=== PATIENT | male | born 1980 | race Caucasian/White ===

== ENCOUNTER 2017-05-24 13:58 | Inpatient (IN) | payer MEDICAID, OTHER, SELFPAY ==
[~2017-05-24] VITALS: Ht 172.7 cm; Wt 80.0 kg
[2017-05-24] MEDS ORDERED: TYLE325T5 PO (14:07)
[2017-05-24] MEDS ORDERED: BACTRIM 160MG/800MG DS TAB PO ONE (15:45)
[2017-05-24] MEDS ORDERED: ASPIRIN 81 MG CHEW TABLET PO ONE (15:45)
[2017-05-24 15:49] LABS: BASO % 0.3 % (0.0-1.0); EOS % 0.4 % (0.0-3.0); LARGE UNSTAINED CELL # 0.1 K/mm3 (0.0-0.4); LARGE UNSTAINED CELL % 0.8 % (0.0-4.0); LYMPH # 0.7 K/mm3 (1.5-4.5); LYMPH % 8.5 % (24.0-44.0); MEAN CORPUSCULAR HEMOGLOBIN 30.1 pg (27.0-33.0); MEAN CORPUSCULAR HGB CONC 35.5 g/dl (32.0-36.5); MEAN CORPUSCULAR VOLUME 84.7 fl (80.0-96.0); MONO # 0.5 K/mm3 (0.0-0.8); MONO % 6.4 % (0.0-5.0); NEUTROPHILS # 6.6 K/mm3 (1.8-7.7); NEUTROPHILS % 83.7 % (36.0-66.0); PLATELET COUNT, AUTOMATED 155 k/mm3 (150-450); RED CELL DISTRIBUTION WIDTH 12.6 % (11.5-14.5); WHITE BLOOD COUNT 7.9 K/mm3 (4.0-10.0)
[2017-05-24 15:58] LABS: ANION GAP 6 MEQ/L (8-16); BLOOD UREA NITROGEN 23 MG/DL (7-18); CALCIUM LEVEL 8.7 MG/DL (8.5-10.1); CARBON DIOXIDE LEVEL 29 MEQ/L (21-32); CHLORIDE LEVEL 98 MEQ/L (98-107); CREATININE FOR GFR 1.07 MG/DL (0.70-1.30); GLOMERULAR FILTRATION RATE > 60.0 (>60); GLUCOSE, FASTING 95 MG/DL (70-105); POTASSIUM SERUM 3.8 MEQ/L (3.5-5.1); SODIUM LEVEL 133 MEQ/L (136-145)
--- NOTE | 2017-05-24 16:12 | REP ---
Chest x-ray: Two views. History: Chest pain . Comparison study: No comparisons. . Findings: The lungs are well inflated and free of infiltrate. The pleural angles are sharp. The heart size is normal. Pulmonary vasculature is not increased. No significant bony abnormality is seen. EKG monitoring electrodes are seen. Impression: Negative chest x-ray. Signed by Dean Rodríguez MD 05/24/2017 04:04 P
[2017-05-24] MEDS ORDERED: NS 1,000 ML IV ONE (16:45)
[2017-05-24] MEDS ORDERED: ACETAMINOPHEN TAB 650MG DOSE (2X325MG) PO ONE ×2 (16:45→22:00)
[2017-05-24] MEDS ORDERED: CLINDAMYCIN 600 MG in APPROPRIATE DILUENT 1 EA IV ONE (17:45)
[2017-05-24] MEDS ORDERED: IBUPROFEN 600 MG TAB PO ONE (17:45)
[2017-05-24] MEDS ORDERED: VANCOMYCIN HCL 1,000 MG, VIAL MATE ADAPTER 1 EACH in D5W 250 ML IV ONE (17:45)
[2017-05-24] MEDS ORDERED: LIDOCAINE 1% MDV 20ML VIAL SC ONE (21:30)
[2017-05-24] MEDS ORDERED: BACT800T5 PO (21:54)
[2017-05-24 23:14] LABS: ERYTHROCYTE SEDIMENTATION RATE 3 mm/hr (0-15)
[2017-05-24] MEDS ORDERED: ADACEL/BOOSTRIX VACCINE (DIPHTH/PERTUSS/ACELL/TETANUS)0.5ML SYR (90715) IM ONE (23:15)
[2017-05-24] MEDS ORDERED: MORPHINE 2 MG/ML 1ML SYRINGE IV PRN (23:30)
[2017-05-24] MEDS ORDERED: PERCOCET 5MG/325MG TAB PO PRN (23:30)
[2017-05-24 23:45] VITALS: BP 146/84
[2017-05-24] MEDS: ONDANSETRON 4MG/2ML VIAL (J2405) IV PRN (23:56)
[2017-05-25] MEDS: CEFTAROLINE FOSAMIL 600 MG in D5W MINI-BAG PLUS 50 ML IV SCH ×2 (01:03→11:47)
[2017-05-25] MEDS: LR 1,000 ML IV SCH ×2 (01:03→11:47)
--- NOTE | 2017-05-25 01:20 | REPUSA ---
Clinical statement: Pain. Findings: Real-time ultrasound imaging of the left forearm was obtained. Mild edema is seen in the s ubcutaneous tissues. No abscess or fluid collection is identified. Impression: Mild edema without evidence of abscess.
[2017-05-25] MEDS: ACETAMINOPHEN TAB 650MG DOSE (2X325MG) PO PRN ×4 (06:21→21:03)
[2017-05-25 06:25] LABS: MEAN CORPUSCULAR HEMOGLOBIN 29.5 pg (27.0-33.0); MEAN CORPUSCULAR HGB CONC 34.6 g/dl (32.0-36.5); MEAN CORPUSCULAR VOLUME 85.3 fl (80.0-96.0); RED CELL DISTRIBUTION WIDTH 12.4 % (11.5-14.5); WHITE BLOOD COUNT 8.7 K/mm3 (4.0-10.0)
[2017-05-25 06:32] LABS: ANION GAP 7 MEQ/L (8-16); BLOOD UREA NITROGEN 14 MG/DL (7-18); CARBON DIOXIDE LEVEL 24 MEQ/L (21-32); CHLORIDE LEVEL 104 MEQ/L (98-107); CREATININE FOR GFR 1.17 MG/DL (0.70-1.30); GLOMERULAR FILTRATION RATE > 60.0 (>60); GLUCOSE, FASTING 117 MG/DL (70-105); MAGNESIUM LEVEL 1.8 MG/DL (1.8-2.4); SODIUM LEVEL 135 MEQ/L (136-145)
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
--- NOTE | 2017-05-25 07:34 | ECGEPIP ---
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
--- NOTE | 2017-05-25 07:38 | ECGEPIP ---
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
--- NOTE | 2017-05-25 07:52 | REP ---
Left forearm two views : There is no fracture or dislocation. Mineralization and joint spaces are normal. There are no calcifications or foreign bodies. Impression: Negative left forearm . Signed by Honorio Faria MD 05/25/2017 07:44 A
[2017-05-25] MEDS: ENOXAPARIN 40 MG/0.4 ML SYRINGE (J1650) SC SCH (08:30)
[2017-05-25] MEDS: SENOKOT S TAB PO SCH ×2 (08:30→19:46)
[2017-05-25] MEDS: KETOROLAC 30 MG/ML VIAL (J1885) IV PRN ×2 (12:20→18:23)
[2017-05-25 14:00] VITALS: BP 118/67
[2017-05-25] MEDS: ONDANSETRON 4MG/2ML VIAL (J2405) IV PRN (17:28)
[2017-05-25] MEDS: VANCOMYCIN HCL 1,000 MG, VIAL MATE ADAPTER 1 EACH in D5W 250 ML IV SCH (17:35)
--- NOTE | 2017-05-25 19:39 | PHACANCOPD ---
PHARMACY VANCOMYCIN DOSING Pt Demographics Demographics Patient Age:36 , Weight:85.900 , Gender: male Adjusted Body Weight Date: 05/25/17, Adjusted Body Weight: [NA] Kg Events Past 24 Hours Events Past 24 Hours: YES: Fever, Elevation in WBC, NO: Dialysis, Diuretic Therapy, Change in CrCl, Pending Diagnostics, Pending Procedures, Other Vancomycin Vancomycin indication: bacteremia/cellulitis/abscess Vancomycin Target Ranges: 10-20 mcg/ml Vancomycin Load Y/N: No Load Dose Date Time Vancomycin Load Dose: Date: Time: Vancomycin Dose Date: 05/25/17. Current Vancomycin Dose: [1g IV q8h @18] Intermittent Dosing?: No Labs Labs Item Value Date Time C-Reactive Protein, Quantitative 2.54 MG/DL H 05/24/17 1447 C-Reactive Protein, Quantitative 8.88 MG/DL H 05/25/17 0552 Creatinine 1.07 MG/DL 05/24/17 1447 Creatinine 1.17 MG/DL 05/25/17 0552 White Blood Count 7.9 K/mm3 05/24/17 1447 White Blood Count 8.7 K/mm3 05/25/17 0552 Vital Signs Label Value Date Time Patient Temperature 100.6 degrees F 05/25/17 0830 Temperature Source Temporal 05/25/17 0830 Patient Temperature 99.4 degrees F 05/25/17 1029 Temperature Source Temporal 05/25/17 1029 Patient Temperature 100.5 degrees F 05/25/17 1220 Temperature Source Temporal 05/25/17 1220 Patient Temperature 98.6 degrees F 05/25/17 1400 Temperature Source Temporal 05/25/17 1400 Patient Temperature 99.6 degrees F 05/25/17 1620 Temperature Source Temporal 05/25/17 1620 Micro Microbiology 05/25/17 Blood Culture, Received Pending 05/25/17 Blood Culture, Received Pending 05/24/17 Blood Culture - Preliminary, Resulted 05/24/17 Blood Culture - Preliminary, Resulted 05/24/17 Urine Culture - Final, Complete 05/25/17 MRSA Screen, Received Pending 05/24/17 Gram Stain - Final, Resulted 05/24/17 Wound Culture, Resulted Pending Creatinine Clearance Date:05/25/17. Creatinine Clearance: [86 ml/min]. Assessment and Plan Maintaining Current Dose?: Yes Reason for dose change: No Dose Change Pharmacist Note Pharmacist Note Date: 05/25/17. Pharmacist note: pt was admitted yesterday for left arm cellulitis/arm & shoulder pain s/p I&D in the ER. Blood cultures (drawn @14:47, 17:58) are preliminary positive for G+ cocci in clusters. MRSA screen is pending. Pt has a limited medical Hx at our facility. Upon arrival yesterday, pt received Bactrim po @15:58, Vancomycin 1g IV @18:18 and Clindamycin @19:40. He was then started on Ceftaroline 600mg IV q12h x2 doses before being switched to Vancomycin and Aztreonam today. I have started him on Vancomycin 1g IV q8h. I will continue to monitor cultures/renal function and follow up with a trough as necessary. Gasper Weir Pharm.D. May 25, 2017 19:39
[2017-05-25] MEDS: AZTREONAM 1 GM in D5W MINI-BAG PLUS 50 ML IV SCH (19:46)
[2017-05-25 22:00] VITALS: BP 120/60
[2017-05-26] MEDS: VANCOMYCIN HCL 1,000 MG, VIAL MATE ADAPTER 1 EACH in D5W 250 ML IV SCH ×4 (01:22→22:00)
[2017-05-26] MEDS: KETOROLAC 30 MG/ML VIAL (J1885) IV PRN ×2 (02:45→17:30)
[2017-05-26] MEDS: AZTREONAM 1 GM in D5W MINI-BAG PLUS 50 ML IV SCH ×3 (04:00→20:31)
[2017-05-26 06:00] VITALS: BP 111/57
[2017-05-26 06:53] LABS: MEAN CORPUSCULAR HGB CONC 34.2 g/dl (32.0-36.5); MEAN CORPUSCULAR VOLUME 84.7 fl (80.0-96.0); RED CELL DISTRIBUTION WIDTH 12.8 % (11.5-14.5); WHITE BLOOD COUNT 4.9 K/mm3 (4.0-10.0)
[2017-05-26 07:10] LABS: ANION GAP 7 MEQ/L (8-16); BLOOD UREA NITROGEN 11 MG/DL (7-18); CALCIUM LEVEL 8.1 MG/DL (8.5-10.1); CARBON DIOXIDE LEVEL 25 MEQ/L (21-32); CHLORIDE LEVEL 106 MEQ/L (98-107); CREATININE FOR GFR 1.02 MG/DL (0.70-1.30); GLOMERULAR FILTRATION RATE > 60.0 (>60); GLUCOSE, FASTING 113 MG/DL (70-105); POTASSIUM SERUM 3.7 MEQ/L (3.5-5.1); SODIUM LEVEL 138 MEQ/L (136-145)
[2017-05-26] MEDS: ENOXAPARIN 40 MG/0.4 ML SYRINGE (J1650) SC SCH (09:21)
[2017-05-26] MEDS: ACETAMINOPHEN TAB 650MG DOSE (2X325MG) PO PRN ×2 (09:21→18:20)
[2017-05-26] MEDS: SENOKOT S TAB PO SCH ×2 (09:21→20:31)
[2017-05-26 14:00] VITALS: BP 116/70
[2017-05-26 22:00] VITALS: BP 118/70
--- NOTE | 2017-05-26 22:26 | IPN ---
DATE: 05/25/2017 Mr. Benjamin was feeling better this morning. Unfortunately, during the course of the afternoon, he developed rigors. No fever, but does have some increasing swelling of the left extremity. T-max was 104.3 yesterday. T-current is 99.5. Today, he has been running low grade fevers. Pulse 80. Respiratory rate 16. Blood pressure 118/67. Input and output notable for a positive fluid balance of 1320, weight 85.9 kg. Body mass index (BMI) of 28.8. He is awake, appropriately interactively. Pleasant conversant. Somewhat stoic. Mucous membranes moist. Neck supple. Breathing is symmetric and rested. Heart is in a regular rhythm and not tachycardiac. Area of crusting of his left forearm shows no fluctuance. He says it is decreased tenderness when compared to yesterday. There is no axillary adenopathy on the left side. White cell count 8.7, hemoglobin 15.3 and platelets of 139. BUN 14, creatine 1.17. C-reactive protein (CRP) has increased to 8.8. Initial blood cultures have returned. ASSESSMENT: 36-year-old with left upper extremity abscess, bacteremia with gram-positive cocci in clusters. PLAN: 1. Infectious disease. The patient was started on Teflaro, which would seem like a reasonable choice. Continues to be rigor. So, I have elected to change antibiotics to Azactam and vancomycin pending culture results, repeated blood cultures. At baseline is somewhat unusual presentation. Will get a 2-D echocardiogram as well. 2. The patient had chest pain at the time of presentation, which has resolved. 3. The patient has appropriate deep vein thrombosis (DVT) prophylaxis.
[2017-05-27] MEDS: AZTREONAM 1 GM in D5W MINI-BAG PLUS 50 ML IV SCH (03:46)
[2017-05-27] MEDS: KETOROLAC 30 MG/ML VIAL (J1885) IV PRN (03:47)
[2017-05-27 06:00] VITALS: BP 117/64
[2017-05-27] MEDS: VANCOMYCIN HCL 1,000 MG, VIAL MATE ADAPTER 1 EACH in D5W 250 ML IV SCH ×3 (06:01→21:27)
[2017-05-27 06:48] LABS: MEAN CORPUSCULAR HEMOGLOBIN 29.2 pg (27.0-33.0); MEAN CORPUSCULAR HGB CONC 34.4 g/dl (32.0-36.5); MEAN CORPUSCULAR VOLUME 84.9 fl (80.0-96.0); RED CELL DISTRIBUTION WIDTH 12.6 % (11.5-14.5); WHITE BLOOD COUNT 4.5 K/mm3 (4.0-10.0)
[2017-05-27 07:12] LABS: ANION GAP 8 MEQ/L (8-16); BLOOD UREA NITROGEN 8 MG/DL (7-18); CALCIUM LEVEL 8.2 MG/DL (8.5-10.1); CARBON DIOXIDE LEVEL 25 MEQ/L (21-32); CHLORIDE LEVEL 104 MEQ/L (98-107); CREATININE FOR GFR 0.91 MG/DL (0.70-1.30); GLOMERULAR FILTRATION RATE > 60.0 (>60); GLUCOSE, FASTING 113 MG/DL (70-105); MAGNESIUM LEVEL 2.2 MG/DL (1.8-2.4); POTASSIUM SERUM 3.7 MEQ/L (3.5-5.1); SODIUM LEVEL 137 MEQ/L (136-145)
[2017-05-27] MEDS ORDERED: SIMETHICONE 80 MG CHEW TAB PO PRN (08:00)
--- NOTE | 2017-05-27 09:13 | IPN ---
DATE: 05/26/2017 Mr. Benjamin is feeling better than he did last evening. He still has the feeling as though he might have chills developing that is not as intense and he has not had fevers. Temperature currently is 97.8. Last fever was 100.5 at 12:20 p.m. yesterday. Pulse 87. Respiratory rate 18. Blood pressure 111/57. 97% on room air. Input and output notable for a positive fluid balance of 4200. Weight is 84.6 kg with a body mass index of 28.2. He is awake, appropriately interactively, pleasantly conversant. Excellent historian. Mucous membranes moist. Neck supple, thick. Breathing is symmetric and rested. Heart is in a regular rate and rhythm. No murmur on exam. Left upper extremity has an area of crusting with a more notable blister than last evening distally. Erythema has faded somewhat and does not have clear borders. White cell count 4.9. C-reactive protein 14.3. Creatinine of 1.02. Repeat blood cultures are pending. Previous blood cultures have grown Staphylococcus aureus and wound culture grew MRSA. Assessment is as follows: This is a 36-year-old with MRSA, left forearm abscess and resulting bacteremia. Plan is as follows: 1. Infectious disease. The patient is on Zosyn and vancomycin at this point. We will await blood culture results specifically to adjust antibiotics. He does seem to have improvement. Repeat blood cultures are pending. 2D echocardiogram is pending. EKG is pending. 2. The patient has resolved chest pain. 3. The patient has appropriate deep vein thrombosis (DVT) prophylaxis. 4. There is no evidence of increasing abscess on his left forearm or reaccumulation. This will need to be monitored clinically.
[2017-05-27] MEDS: ENOXAPARIN 40 MG/0.4 ML SYRINGE (J1650) SC SCH (09:14)
--- NOTE | 2017-05-27 10:38 | ECHO ---
DATE OF PROCEDURE: 05/26/2017 DATE OF : 1980 AGE: 36 REFERRING PROVIDER: Dr. Tera rGider. PATIENT LOCATION: REASON FOR ECHOCARDIOGRAM: Fever. 2D MEASUREMENTS: IVS: 1.2 cm LV: 5.1 cm LVPW: 1.0 cm LA: 3.9 cm Aorta: 3.3 cm RV: 2.7 cm DOPPLER MEASUREMENTS: Mitral E: 0.83 Mitral A: 0.39 Ratio 2.17 Maximum tricuspid valve velocity: 2.1 m/s 2D COMMENTS: 1. Normal left ventricular size, wall thickness and normal global left ventricular systolic function. The estimated global left ventricular systolic ejection fraction is 60% to 65%. 2. Normal left atrium. Normal right atrium and right ventricle. 3. The atrial septum appeared to be normal without evidence of defect or shunt. 4. Normal aortic root. 5. No pericardial effusion seen. 6. The aortic valve, mitral valve, tricuspid valve, and pulmonic valve appeared to be normal. The proximal pulmonary artery branches were not well visualized. 7. The inferior vena cava was normal in size, central venous pressure is most likely normal. DOPPLER: Only trace mitral regurgitation and trace tricuspid regurgitation detected. The calculated pulmonary artery systolic pressure was normal, less than 30 mmHg. Assessment of the left ventricular diastolic function also was normal. IMPRESSION: 1. Normal global left ventricular systolic and diastolic function. 2. Trace mitral regurgitation. 3. Trace tricuspid regurgitation with a normal calculated pulmonary artery systolic pressure. 4. No vegetations noted in this transthoracic echocardiogram. To consider a transesophageal echocardiogram if there is any subclinical correlation. MTDD
[2017-05-27 14:00] VITALS: BP 116/66
--- NOTE | 2017-05-27 14:10 | PHACANCOPD ---
PHARMACY VANCOMYCIN DOSING Pt Demographics Demographics Patient Age:36 , Weight:85.870 , Gender: male Adjusted Body Weight Date: 05/25/17, Adjusted Body Weight: [NA] Kg Events Past 24 Hours Events Past 24 Hours: YES: Fever, NO: Dialysis, Diuretic Therapy, Change in CrCl, Elevation in WBC, Pending Diagnostics, Pending Procedures, Other Vancomycin Vancomycin indication: bacteremia/cellulitis/abscess Vancomycin Target Ranges: 10-20 mcg/ml Vancomycin Load Y/N: No Load Dose Date Time Vancomycin Load Dose: Date: Time: Vancomycin Dose Date: 05/26/17. Current Vancomycin Dose: [1g IV Q8H @22] Date: 05/25/17. Current Vancomycin Dose: [1g IV q8h @18] Intermittent Dosing?: No Labs Labs Item Value Date Time White Blood Count 8.7 K/mm3 05/25/17 0552 White Blood Count 4.9 K/mm3 05/26/17 0617 White Blood Count 4.5 K/mm3 05/27/17 0607 Vancomycin Level Trough 9.2 UG/ML L 05/26/17 1714 Creatinine 1.17 MG/DL 05/25/17 0552 Creatinine 1.02 MG/DL 05/26/17 0617 Creatinine 0.91 MG/DL 05/27/17 0607 C-Reactive Protein, Quantitative 11.80 MG/DL H 05/27/17 0607 C-Reactive Protein, Quantitative 14.30 MG/DL H 05/26/17 0617 C-Reactive Protein, Quantitative 8.88 MG/DL H 05/25/17 0552 Vancomycin Level Trough 9.5 UG/ML L 05/27/17 1308 Vital Signs Label Value Date Time Patient Temperature 100.7 degrees F 05/26/17 1733 Temperature Source Temporal 05/26/17 1733 Patient Temperature 97.9 degrees F 05/26/17 2200 Temperature Source Core 05/26/17 2200 Patient Temperature 97.4 degrees F 05/27/17 0600 Temperature Source Core 05/27/17 0600 Micro Microbiology 05/25/17 Blood Culture - Preliminary, Resulted No growth after 24 hours . All specim... 05/25/17 Blood Culture - Preliminary, Resulted No growth after 24 hours . All specim... 05/24/17 Blood Culture - Final, Complete Staph.aureus Methicillin Resis 05/24/17 Blood Culture - Final, Complete Staph.aureus Methicillin Resis 05/24/17 Urine Culture - Final, Complete 05/25/17 MRSA Screen - Final, Complete Staph.aureus Methicillin Resis 05/24/17 Gram Stain - Final, Complete 05/24/17 Wound Culture - Final, Complete Staph.aureus Methicillin Resis Creatinine Clearance Date:05/27/17. Creatinine Clearance: [>100ml/min]. Date:05/25/17. Creatinine Clearance: [86 ml/min]. Assessment and Plan Maintaining Current Dose?: Yes Reason for dose change: Other (additional 1g dose this afternoon) Pharmacist Note Pharmacist Note Date: 05/27/17. Pharmacist note: vancomycin trough drawn yesterday was low, therefore I had rescheduled his dosing to 4 hours earlier (4hr load) however the repeat trough this afternoon was about the same as yesterday. I checked with nursing to see if there were any issues with any of the doses but none were reported. I ordered an additional 1g dose this afternoon and we will continue the 1g q8h dosing. Creatinine clearance has improved since admission. Wound and blood cultures are positive for MRSA (vanco lorraine = 1, otherwise taylor- sensitive). Repeat blood cultures have been negative thus far. We will continue to monitor. Date: 05/25/17. Pharmacist note: pt was admitted yesterday for left arm cellulitis/arm & shoulder pain s/p I&D in the ER. Blood cultures (drawn @14:47, 17:58) are preliminary positive for G+ cocci in clusters. MRSA screen is pending. Pt has a limited medical Hx at our facility. Upon arrival yesterday, pt received Bactrim po @15:58, Vancomycin 1g IV @18:18 and Clindamycin @19:40. He was then started on Ceftaroline 600mg IV q12h x2 doses before being switched to Vancomycin and Aztreonam today. I have started him on Vancomycin 1g IV q8h. I will continue to monitor cultures/renal function and follow up with a trough as necessary. Gasper Weir Pharm.D. May 27, 2017 14:10
[2017-05-27] MEDS ORDERED: VANCOMYCIN HCL 1,000 MG, VIAL MATE ADAPTER 1 EACH in D5W 250 ML IV ONE (15:00)
[2017-05-27 21:00] VITALS: BP 113/61
[2017-05-28] VITALS: BP 149/89
[2017-05-28] MEDS: VANCOMYCIN HCL 1,000 MG, VIAL MATE ADAPTER 1 EACH in D5W 250 ML IV SCH ×3 (05:32→21:47)
[2017-05-28 07:01] LABS: MEAN CORPUSCULAR HEMOGLOBIN 29.5 pg (27.0-33.0); MEAN CORPUSCULAR HGB CONC 34.8 g/dl (32.0-36.5); MEAN CORPUSCULAR VOLUME 84.7 fl (80.0-96.0); RED CELL DISTRIBUTION WIDTH 12.9 % (11.5-14.5); WHITE BLOOD COUNT 5.5 K/mm3 (4.0-10.0)
[2017-05-28 07:25] LABS: ANION GAP 6 MEQ/L (8-16); BLOOD UREA NITROGEN 7 MG/DL (7-18); CALCIUM LEVEL 8.5 MG/DL (8.5-10.1); CARBON DIOXIDE LEVEL 29 MEQ/L (21-32); CHLORIDE LEVEL 104 MEQ/L (98-107); CREATININE FOR GFR 0.96 MG/DL (0.70-1.30); GLOMERULAR FILTRATION RATE > 60.0 (>60); GLUCOSE, FASTING 125 MG/DL (70-105); MAGNESIUM LEVEL 2.3 MG/DL (1.8-2.4); POTASSIUM SERUM 3.6 MEQ/L (3.5-5.1); SODIUM LEVEL 139 MEQ/L (136-145)
[2017-05-28 08:00] VITALS: BP 123/74
[2017-05-28] MEDS: ENOXAPARIN 40 MG/0.4 ML SYRINGE (J1650) SC SCH (08:40)
--- NOTE | 2017-05-28 11:39 | IPN ---
DATE: 05/27/2017 Mr. Benjamin is feeling better this morning. He has had no fevers. Still had episodes as though he was shaking or going to start shaking. There is no drainage from his left forearm wound. PHYSICAL EXAMINATION: VITAL SIGNS: Temperature 97.4, pulse 77, respiratory rate 18, blood pressure 117/64, 96% on room air. Input and output notable for a positive fluid balance of 3040, two bowel movements noted yesterday. Weight is 85.8 kg. He is awake, appropriately interactive. Mucous membranes are moist. Neck is supple. Breathing is symmetrical and rested. I:E ratio is 1:3. Speaking in complete sentences. No accessory muscle use. Heart has regular rate and rhythm. Abdomen is soft, doughy, nontender. Left forearm has an area of increasingly consolidating erythema around this area of abscess drainage. There is surrounding induration but no fluctuance. It is much less tender than previously. White cell count 4.5, hemoglobin 13.9, platelets of 122. BUN 8, creatinine 0.9, C-reactive protein is 11.8. ASSESSMENT: This is a 36-year-old with methicillin resistant Staphylococcus aureus (MRSA) left forearm abscess and resulting bacteremia. 1. Infectious disease. The patient is on Azactam and vancomycin. Azactam is no longer necessary. We will continue with vancomycin and repeat laboratories. Follow blood culture results. The patient may require ANNETTE. Depending on clinical course, we will discuss the case in general with infectious disease doctor when she becomes available tomorrow. 2. The patient had chest pain at the time of his presentation. 3. The patient has hyponatremia, which has resolved. 4. The patient has developing anemia and thrombocytopenia, which can be monitored clinically.
[2017-05-28 16:00] VITALS: BP 116/80
[2017-05-28 20:00] VITALS: BP 122/71
--- NOTE | 2017-05-28 21:56 | IPN ---
DATE: 05/28/2017 The patient is feeling well today. He has no complaints of pain, chest pain, shortness of breath. No arm pain or drainage. Tolerating a diet. Maximum temperature (Tmax) overnight 100.5, current temperature (T-current) 100.3, pulse 63, respiratory rate 18, blood pressure 123/60. He is awake, appropriately interactive, pleasantly conversant, in no acute distress. Mucous membranes moist. Neck is supple. Breathing is symmetrical and rested. Heart is in a regular rate and rhythm. Abdomen soft, doughy, nontender. Left upper extremity shows evidence of consolidating area of infection with an area of induration, redness, warmth, without tenderness at this point, with two blisters. WBC is 5.5, hemoglobin 14, and platelets of 145. BUN is 7, creatinine 0.96. My assessment is as follows: This is a 36-year-old with methicillin-resistant Staphylococcus aureus (MRSA) left forearm abscess and resulting bacteremia. Plan is as follows: 1. Infectious disease. Patient is currently on vancomycin and has been seen in consultation by Dr. Lama and plan for antibiotic therapy per her. 2. The patient had chest pain at the time of his presentation which resolved. 3. The patient has hyponatremia, which has resolved. 4. The patient has borderline anemia and thrombocytopenia which can be followed clinically.
[2017-05-29] VITALS: BP 134/88
[2017-05-29 04:00] VITALS: BP 121/59
[2017-05-29] MEDS ORDERED: DAPTOmycin 500 MG in NS 50 ML IV SCH (07:00)
[2017-05-29 07:50] LABS: MEAN CORPUSCULAR HEMOGLOBIN 29.5 pg (27.0-33.0); MEAN CORPUSCULAR HGB CONC 34.4 g/dl (32.0-36.5); MEAN CORPUSCULAR VOLUME 85.8 fl (80.0-96.0); RED CELL DISTRIBUTION WIDTH 12.8 % (11.5-14.5); WHITE BLOOD COUNT 5.7 K/mm3 (4.0-10.0)
[2017-05-29 08:00] VITALS: BP 130/84
[2017-05-29] MEDS: ENOXAPARIN 40 MG/0.4 ML SYRINGE (J1650) SC SCH (08:33)
[2017-05-29 08:39] LABS: ANION GAP 6 MEQ/L (8-16); BLOOD UREA NITROGEN 15 MG/DL (7-18); CALCIUM LEVEL 8.7 MG/DL (8.5-10.1); CARBON DIOXIDE LEVEL 28 MEQ/L (21-32); CHLORIDE LEVEL 102 MEQ/L (98-107); CREATININE FOR GFR 0.92 MG/DL (0.70-1.30); GLOMERULAR FILTRATION RATE > 60.0 (>60); GLUCOSE, FASTING 94 MG/DL (70-105); MAGNESIUM LEVEL 2.3 MG/DL (1.8-2.4); POTASSIUM SERUM 3.9 MEQ/L (3.5-5.1); SODIUM LEVEL 136 MEQ/L (136-145)
[2017-05-29 12:00] VITALS: BP 137/79
[2017-05-29] MEDS ORDERED: MUPI2OI EXT (14:02)
--- NOTE | 2017-05-29 15:49 | DS.PDOC ---
Discharge Summary General Date of Admission May 27, 2017 at 08:01 Date of Discharge 05/29/17 Specialist/Consultants Involve: Vanesa Lama MD Discharge Summary PROCEDURES PERFORMED DURING STAY: Incision and drainage of left forearm abscess. DISCHARGE DIAGNOSES: 1. MRSA Bacteremia. 2. Left arm cellulitis secondary to trauma. COMPLICATIONS/CHIEF COMPLAINT: Cellulitis Of Arm, Fever. HOSPITAL COURSE: A 36-year old male presented for worsening left sided chest and shoulder pain. Also noted worsening redness and swelling of left forearm with some purulent drainage at a small site of trauma. 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 Patient noted fevers at home. Patient underwent I&D in ER, with fever of 103. Patient admitted for intravenous antibiotics and infectious disease consultation. Patient responded well to treatment, cultures obtained, and discharged home in stable condition with antibiotics infusion as indicated and outpatient follow up. DISCHARGE MEDICATIONS: Please see below. ALLERGIES: Please see below. PHYSICAL EXAMINATION ON DISCHARGE: VITAL SIGNS: Please see below. GENERAL: NAD, sitting comfortably at edge of bed HEENT: NC/AT, EOMI NECK: supple CARDIOVASCULAR EXAMINATION: +S1S2, RRR RESPIRATORY EXAMINATION: CTA B/L ABDOMINAL EXAMINATION: soft, NT, +BS EXTREMITIES: left forearm cellulitic area, 2"x3" LABORATORY DATA: Please see below. Echocardiogram: Normal LV systolic and diastolic function. Trace regurgitation. ACTIVITY: [As tolerated]. DIET: Regular diet DISPOSITION: 01 Home, Self-Care. DISCHARGE INSTRUCTIONS: 1. Medications (IV infusion) as directed. ITEMS TO FOLLOWUP ON ON OUTPATIENT: 1. PCP in 3-5 [address] 2[address] Infectious disease Dr. Lama as directed or in 3-5 days DISCHARGE CONDITION: [Stable]. TIME SPENT ON DISCHARGE: Greater than 30 minutes. Vital Signs/I&Os Vital Signs Date Time Temp Pulse Resp B/P (MAP) Pulse Ox O2 Delivery O2 Flow Rate FiO2 05/29/17 12:00 97.9 66 18 137/79 (98) 97 Room Air I&O- Last 24 Hours up to 6 AM 05/29/17 05:59 Intake Total 2970 ml Output Total 1050 ml Balance 1920 ml Laboratory Data Labs 24H Laboratory Tests 2 05/29/17 07:18: Anion Gap 6L, Glomerular Filtration Rate > 60.0, Blood Urea Nitrogen 15#, Creatinine 0.92, Sodium Level 136, Potassium Level 3.9, Chloride Level 102, Carbon Dioxide Level 28, Calcium Level 8.7, Magnesium Level 2.3, Total Creatine Kinase 36L, C-Reactive Protein, Quantitative 4.41H CBC/BMP Laboratory Tests 05/29/17 07:18 Red Blood Count 4.89, Mean Corpuscular Volume 85.8, Mean Corpuscular Hemoglobin 29.5, Mean Corpuscular Hemoglobin Concent 34.4, Red Cell Distribution Width 12.8 , Calcium Level 8.7 Microbiology Microbiology 05/25/17 Blood Culture - Preliminary, Resulted No Growth after 72 hours. All specime... 05/25/17 Blood Culture - Preliminary, Resulted No Growth after 72 hours. All specime... 05/24/17 Blood Culture - Final, Complete Staph.aureus Methicillin Resis 05/24/17 Blood Culture - Final, Complete Staph.aureus Methicillin Resis 05/24/17 Urine Culture - Final, Complete 05/25/17 MRSA Screen - Final, Complete Staph.aureus Methicillin Resis 05/24/17 Gram Stain - Final, Complete 05/24/17 Wound Culture - Final, Complete Staph.aureus Methicillin Resis Discharge Medications Scheduled Mupirocin (Mupirocin) 2 % Oin, 1 % EXT TID Scheduled PRN Acetaminophen (Tylenol) 325 Mg Tab, 975 MG PO Q6H PRN for PAIN / FEVER, ( Reported) Allergies Coded Allergies: Penicillins (Verified Allergy, Intermediate, rash, 05/24/17) SYLVIA CONTRERAS MD May 29, 2017 15:48
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
== END 2017-05-29 14:30 | disposition home or self-care (01) | DRG 383 ==
LOC: M ED 13:58 → M ED INP 13:59 → M MS5PR 23:47 → EEVIPCON 05-27 08:01 → OBSVTOIN 05-27 08:01 → M PED 05-27 23:56
PROVIDERS: ADMIT Hospitalist; ATTEND Internal Medicine
DX: L02.414 Cutaneous abscess of left upper limb (principal); R78.81 Bacteremia; E87.1 Hypo-osmolality and hyponatremia; B95.62 Methicillin resistant Staphylococcus aureus infection as the cause of diseases classified elsewhere; Z88.0 Allergy status to penicillin; L03.114 Cellulitis of left upper limb

== ENCOUNTER 2017-05-30 14:34 | Outpatient (CLI) | payer OTHER ==
[~2017-05-30 14:34] MED LIST: BACT800T5 PO; MUPI2OI EXT; TYLE325T5 PO
[2017-05-30 14:50] VITALS: BP 134/84
[2017-05-30] MEDS ORDERED: DALBAVANCIN 1,500 MG in D5W 250 ML IV ONE (15:30)
[2017-05-30 17:15] VITALS: BP 129/95
== END 2017-05-30 17:17 | disposition home or self-care (01) ==
LOC: M OPCLI4PR 14:34 → M PED 14:37 → M OPCLI4PR 17:17
PROVIDERS: ATTEND Internal Medicine
DX: R78.81 Bacteremia (principal); B95.62 Methicillin resistant Staphylococcus aureus infection as the cause of diseases classified elsewhere

== ENCOUNTER → 2017-07-17 | Outpatient (REF) | payer OTHER | LOC: M SFHCPLAZ 13:00 | PROVIDERS: ATTEND Internal Medicine Infectious Disease | DX: A49.02 Methicillin resistant Staphylococcus aureus infection, unspecified site (principal) ==

== ENCOUNTER → 2019-07-14 | Outpatient (REF) | payer OTHER | LOC: M SFHCPLAZ 17:08 | PROVIDERS: ATTEND Internal Medicine Infectious Disease | DX: A49.02 Methicillin resistant Staphylococcus aureus infection, unspecified site (principal) ==

== ENCOUNTER 2024-06-09 07:28 | Emergency (ER) | payer OTHER ==
[~2024-06-09] VITALS: Ht 175.3 cm; Wt 86.3 kg
[2024-06-09] MEDS ORDERED: ISOVUE-370 76% 100ML VIAL As Ordered ONE (07:50)
[2024-06-09 08:19] LABS: BASO % 0.3 % (0.0-1.0); EOS # 0.1 10^3/uL (0.0-0.5); HEMATOCRIT 47.2 % (42.0-52.0); HEMOGLOBIN 16.2 g/dl (13.5-17.5); LYMPH # 1.3 10^3/uL (1.5-5.0); LYMPH % 10.9 % (24.0-44.0); MEAN CORPUSCULAR HEMOGLOBIN 29.2 pg (27.0-33.0); MEAN CORPUSCULAR HGB CONC 34.3 g/dl (32.0-36.5); MONO # 0.9 10^3/uL (0.0-0.8); MONO % 7.9 % (2.0-8.0); NEUTROPHILS # 9.1 10^3/uL (1.5-8.5); NEUTROPHILS % 78.7 % (36.0-66.0); PLATELET COUNT, AUTOMATED 215 10^3/uL (150-450); RED BLOOD COUNT 5.55 10^6/uL (4.30-6.10); WHITE BLOOD COUNT 11.6 10^3/uL (4.0-10.0)
[2024-06-09 08:32] LABS: INR 1.09; PARTIAL THROMBOPLASTIN TIME 24.7 SECONDS (24.8-34.2); PROTHROMBIN TIME 13.8 SECONDS (12.5-14.5)
[2024-06-09 08:41] LABS: APPEARANCE, URINE CLEAR (CLEAR); BACTERIA, URINE AUTO NEGATIVE (NEGATIVE); BILIRUBIN, URINE AUTO NEGATIVE (NEGATIVE); BLOOD, URINE BLOOD 1+ (NEGATIVE); COLOR, URINE YELLOW (YELLOW); GLUCOSE, URINE (UA) AUTO NEGATIVE (NEGATIVE); KETONE, URINE AUTO NEGATIVE (NEGATIVE); LEUKOCYTE ESTERASE, URINE AUTO NEGATIVE (NEGATIVE); MUCUS, URINE SMALL (NEGATIVE); NITRITE, URINE AUTO NEGATIVE (NEGATIVE); PROTEIN, URINE AUTO 1+ mg/dL (NEGATIVE); RBC, URINE AUTO 2 /HPF (0-3); SPECIFIC GRAVITY URINE AUTO 1.028 (1.002-1.035); SQUAMOUS EPITHELIAL CELL UR AU 0 /HPF (0-6); UROBILINOGEN, URINE AUTO 0.2 mg/dL (0.0-2.0); WBC, URINE AUTO 0 /HPF (0-3)
[2024-06-09 08:53] LABS: ALBUMIN 3.9 G/DL (3.2-5.2); BILIRUBIN,DIRECT 0.2 MG/DL (<0.4); BILIRUBIN,TOTAL 0.7 MG/DL (0.3-1.2); TOTAL PROTEIN 6.5 G/DL (5.7-8.2)
[2024-06-09] MEDS: BOOSTRIX VACCINE (TETANUS/DIPHTH/ACEL. PERTUSSIS) 0.5ML SYR IM.IMMUN ONE (08:56)
[2024-06-09 09:02] LABS: AMPHETAMINES LEVEL URINE NEGATIVE (NEGATIVE); BARBITURATES URINE NEGATIVE (NEGATIVE)
[2024-06-09 09:03] LABS: BENZODIAZEPINES URINE NEGATIVE (NEGATIVE); CANNABINOIDS URINE NEGATIVE (NEGATIVE); COCAINE METABOLITE URINE NEGATIVE (NEGATIVE); METHADONE URINE NEGATIVE (NEGATIVE); OPIATES URINE NEGATIVE (NEGATIVE); PHENCYCLIDINE URINE NEGATIVE (NEGATIVE)
[2024-06-09] MEDS: KETOROLAC 30 MG/ML 1ML VIAL IV ONE (09:42)
[2024-06-09] MEDS ORDERED: HYDR-3713 PO (09:47)
[2024-06-09 10:00] VITALS: BP 128/86; TEMP 97; O2SAT 99
== END 2024-06-09 10:19 | disposition home or self-care (01) ==
LOC: M ED 07:28
DX: S22.41XA Multiple fractures of ribs, right side, initial encounter for closed fracture (principal); W55.29XA Other contact with cow, initial encounter; Y92.009 Unspecified place in unspecified non-institutional (private) residence as the place of occurrence of the external cause; Y93.9 Activity, unspecified; Y99.9 Unspecified external cause status; Z88.0 Allergy status to penicillin
CPT/HCPCS: 71045; 71260; 74177; 80047; 80076; 80307; 81001; 82150; 83605; 83690; 85025; 85610; 85730; 86850; 86900; 86901; 93041; 94010; 94760; 96374; 99284; J1885; Q9967